=== PATIENT | female | born 1965 | race American Indian/Alaskan Native ===

== ENCOUNTER 2016-10-24 13:03 | Emergency (ER) | payer MEDICARE, MEDICAID ==
[2016-10-24 13:37] VITALS: BP 150/83
--- NOTE | 2016-10-24 13:56 | EDM.PDOC ---
ED HPI Behavioral Health - General Chief Complaint: Behavioral/Psych Stated Complaint: MENTAL ISSUES Time Seen by Provider: 10/24/16 13:41 Source of Information: Reports: Family (son) Exam Limitations: Reports: Altered mental status - History of Present Illness INITIAL COMMENTS - FREE TEXT/NARRATIVE: Son lives in [place] and has a friend who stays with the patient and her . The patient and her have been disagreeing/ arguing. By report she has been becoming less interactive; her son says she has been "going down hill for a week and becoming catatonic." Her son says that she has been diagnosed with " bipolar and schizophrenia." He brought her to the ED. By history also had a delusional disorder Onset of Symptoms: Reports: gradual Duration of Symptoms: Reports: Day(s):, Week(s): (for the past week), Getting worse Severity: severe Context, Behavioral Health: Reports: other () Associated Symptoms: Reports: depression, other (Becoming less interactive and the friend of her son says that she has not been eating. She had a small ammount of mashed potatoes) - SAD Persons Scale (SPS) SPS Sex: Female SPS Age: Between 18-65 Years of Age SPS Depression: Yes SPS Previous Suicide Attempts: No SPS Alcohol Abuse/Drug Abuse: No SPS Rational Thinking Loss: Yes SPS Social Support Deficit: Yes SPS Organized Suicide Plan: No SPS No Spouse/Significant Other: No (has been fighting with her ) SPS Sickness: Yes SPS Sad Person Scale Score: 4 - Related Data Allergies Allergy/AdvReac Type Severity Reaction Status Date / Time morphine Allergy Nausea Verified 12/03/15 00:41 pregabalin [From Lyrica] Allergy Swelling Verified 12/03/15 00:41 Home Medications: Home Meds Escitalopram Oxalate [Lexapro] 20 mg PO DAILY 12/03/15 [History] QUEtiapine [SEROquel] 1 tab PO BEDTIME 12/24/15 [History] ALPRAZolam 2 mg PO TID PRN 10/24/16 [History] Cyclobenzaprine [Flexeril] 10 mg PO TID PRN 10/24/16 [History] Gabapentin [Neurontin] 800 mg PO TID 10/24/16 [History] traMADol HCl [Tramadol HCl] 100 mg PO TID PRN 10/24/16 [History] Generalized Pain Score (Numeric/FACES): 0 Past Medical History HEENT History: Reports: Impaired vision Genitourinary History: Reports: Pyelonephritis, UTI, recurrent 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: Musculoskeletal History: Reports: Back pain, chronic, Fibromyalgia, Other (see below) Other Musculoskeletal History: back surg Neurological History: Reports: Seizure Other Neuro History: Recent seizure in [facility] Psychiatric History: Reports: Anxiety, Bipolar, Depression, Psych Hospitalization(s), Psychosis, Schizophrenia - Infectious Disease History Infectious Disease History: Reports: Chicken pox, Measles - Past Surgical History GI Surgical History: Reports: Appendectomy Social & Family History - Family History Family Medical History: Noncontributory Oncologic: Reports: Other (see below) Other Oncologic Family History: Father had throat ca. - Tobacco Use Smoking Status *Q: Current Some Day Smoker Years of Tobacco use: 20 Packs/Tins Daily: 0.2 Used Tobacco, but Quit: No Month Tobacco Last Used: 08/13 Second Hand Smoke Exposure: Yes - Caffeine Use Caffeine Use: Reports: Coffee - Alcohol Use Days Per Week of Alcohol Use: 0 - Recreational Drug Use Recreational Drug Use: Yes Drug Use in Last 12 Months: No Recreational Drug Type: Reports: Marijuana/Hashish Recreational Drug Use Frequency: Patient Refuses To Answer - Sexual History Sexual History: Reports: Sexually active - Living Situation & Occupation Living situation: Reports: with significant other Occupation: unemployed ED ROS GENERAL - Review of Systems Review Of Systems: See Below Constitutional: Reports: no symptoms HEENT: Reports: No symptoms Respiratory: Reports: No Symptoms Cardiovascular: Reports: No symptoms GI/Abdominal: Reports: No symptoms Musculoskeletal: Reports: no symptoms Skin: Reports: no symptoms Neurological: Reports: No Symptoms Psychiatric: Reports: Depression, Other (Behavior change limits history and there are no physical complaints. Her son reports she is becoming more withdrawn and has not been taking her medications. She only says a few nearly silent words.) ED EXAM, BEHAVIORAL HEALTH - Physical Exam Exam: See Below Exam Limited By: Altered mental status General Appearance: alert, WD/WN, no apparent distress Eye Exam: bilateral eye: EOMI, normal inspection Ears: normal external exam, normal canal, hearing grossly normal, normal TMs Nose: normal inspection Throat/Mouth: Normal inspection, Normal lips, Normal teeth, Normal gums, Normal oropharynx, Normal voice, No airway compromise Head: atraumatic, normocephalic Neck: normal inspection, supple, non-tender, full range of motion Respiratory/Chest: no respiratory distress, lungs clear, normal breath sounds Cardiovascular: normal peripheral pulses, regular rate, rhythm, no edema, no gallop, no JVD, no murmur, no rub Back Exam: normal inspection. No: muscle spasm, paraspinal tenderness Extremities: normal inspection, normal range of motion, non-tender, normal capillary refill, no pedal edema Psychiatric: alert, normal affect, normal mood, oriented, flat affect, non- communicative, poor eye contact, withdrawn Skin Exam: Warm COURSE, BEHAVIORAL HEALTH COMP - Course Vital Signs: Last Vital Signs Temp 96.6 F 10/24/16 13:08 Pulse 104 H 10/24/16 13:08 Resp 20 10/24/16 13:08 BP 150/83 H 10/24/16 13:08 Pulse Ox 99 10/24/16 13:08 Orders, Labs, Meds: Laboratory Tests 10/24/16 Range/Units 13:55 Urine Opiates Screen Negative (NEGATIVE) Ur Oxycodone Screen Negative (NEGATIVE) Urine Methadone Screen Negative (NEGATIVE) Ur Barbiturates Screen Negative (NEGATIVE) U Tricyclic Antidepress Negative (NEGATIVE) Ur Phencyclidine Scrn Negative (NEGATIVE) Ur Amphetamine Screen Negative (NEGATIVE) U Methamphetamines Scrn Negative (NEGATIVE) Urine MDMA Screen Negative (NEGATIVE) U Benzodiazepines Scrn Positive H (NEGATIVE) Urine Cocaine Screen Negative (NEGATIVE) U Marijuana (THC) Screen Positive H (NEGATIVE) Departure - Departure Time of Disposition: 15:51 Disposition: DC/Tfer to Psych Hosp/Unit 65 Condition: good Clinical Impression: Depressive disorder, Schizophrenia Forms: ED Department Discharge, Interfacility Transfer [facility] ED Communication - Discussed Case With (1) Discussed Case With (1): Mental Health Professional (Yeni Ame came to the ED to see and help evaluate the patient) - Discussed Case With (2) Discussed Case With (2): Mental Health Professional (discussed with [facility] who reports there were no bed available and that there was a waiting list.) - Conversation Summary Admitting Provider Agreed to Patient's Admission: Yes Patient Aware of Amendments fo Care Plan: Yes Summary Comment: Discussed with Rajani from [facility] in [place] who agree to accept her in transfer. The accepting physician is Dr Agustin Hong.
== END 2016-10-24 15:42 ==
LOC: DL.ED 13:03
DX: F32.9 Major depressive disorder, single episode, unspecified (principal); F20.9 Schizophrenia, unspecified; F41.9 Anxiety disorder, unspecified; Z88.5 Allergy status to narcotic agent; Z88.8 Allergy status to other drugs, medicaments and biological substances; Z79.899 Other long term (current) drug therapy; Z87.440 Personal history of urinary (tract) infections; Z90.49 Acquired absence of other specified parts of digestive tract
CPT/HCPCS: 80305; 99284; 99285

== ENCOUNTER 2017-01-02 13:33 | Emergency (ER) | payer MEDICARE, MEDICAID ==
[2017-01-02] MEDS ORDERED: Sodium Chloride 0.9% 1,000 ML IV ONE (14:30)
[2017-01-02] MEDS ORDERED: Sodium Chloride 0.9% 10 ML Syringe FLUSH PRN (14:30)
[2017-01-02] MEDS ORDERED: Ondansetron 4 MG/2 ML SDV IV ONE ×2 (14:30→17:17)
--- NOTE | 2017-01-02 14:30 | EDM.PDOC ---
<Eliel Lombardi - Last Filed: 01/02/17 18:57> ED HPI GENERAL MEDICAL PROBLEM - General Chief Complaint: Gastrointestinal Problem Stated Complaint: ABD PAIN Time Seen by Provider: 01/02/17 14:29 Source of Information: Reports: Patient, Old Records, RN, RN Notes Reviewed History Limitations: Reports: No Limitations - History of Present Illness INITIAL COMMENTS - FREE TEXT/NARRATIVE: Arrives from home by POV with c/o onset of burning with urination 2 days ago with onset of lower abdominal pain and cramping yesterday, and nausea and vomiting today. Admits to chills. She is unsure if she has had a fever or not. Denies diarrhea or constipation. Onset: Gradual Onset Date: 12/31/16 Duration: Constant, Getting Worse Location: Reports: Abdomen Quality: Reports: Ache, Burning Severity: Severe Improves with: Reports: None Worsens with: Reports: None Associated Symptoms: Reports: No Other Symptoms Vaginal Pain Score (Numeric/FACES): 8 - Related Data Allergies Allergy/AdvReac Type Severity Reaction Status Date / Time morphine Allergy Nausea Verified 12/03/15 00:41 pregabalin [From Lyrica] Allergy Swelling Verified 12/03/15 00:41 contrast dye Allergy Other Uncoded 01/02/17 18:44 Home Meds: Home Meds Escitalopram Oxalate [Lexapro] 20 mg PO DAILY 12/03/15 [History] QUEtiapine [SEROquel] 1 tab PO BEDTIME 12/24/15 [History] ALPRAZolam 2 mg PO TID PRN 10/24/16 [History] Cyclobenzaprine [Flexeril] 10 mg PO TID PRN 10/24/16 [History] Gabapentin [Neurontin] 800 mg PO TID 10/24/16 [History] traMADol HCl [Tramadol HCl] 100 mg PO TID PRN 10/24/16 [History] Past Medical History HEENT History: Reports: Impaired Vision Genitourinary History: Reports: Pyelonephritis, UTI, 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: Musculoskeletal History: Reports: Back Pain, Chronic, Fibromyalgia Other Musculoskeletal History: back surg Neurological History: Reports: Seizure Other Neuro History: Recent seizure in [facility] Psychiatric History: Reports: Anxiety, Bipolar, Depression, Psych Hospitalization(s), Psychosis, Schizophrenia - Infectious Disease History Infectious Disease History: Reports: Chicken Pox, Measles - Past Surgical History GI Surgical History: Reports: Appendectomy Female Surgical History: Reports: Section, Hysterectomy Musculoskeletal Surgical History: Reports: Other (See Below) Other Musculoskeletal Surgeries/Procedures:: back surgery Social & Family History - Family History Family Medical History: Noncontributory Oncologic: Reports: Other (See Below) Other Oncologic Family History: Father had throat ca. - Tobacco Use Smoking Status *Q: Current Some Day Smoker Years of Tobacco use: 4 Packs/Tins Daily: 0.1 Used Tobacco, but Quit: No Month Tobacco Last Used: 08/13 Second Hand Smoke Exposure: Yes - Caffeine Use Caffeine Use: Reports: Coffee, Soda, Tea - Alcohol Use Days Per Week of Alcohol Use: 0 - Recreational Drug Use Recreational Drug Use: No Drug Use in Last 12 Months: No Recreational Drug Type: Reports: Marijuana/Hashish Recreational Drug Use Frequency: Patient Refuses To Answer - Sexual History Sexual History: Reports: Sexually Active - Living Situation & Occupation Living situation: Reports: with Significant Other Occupation: Unemployed ED ROS GENERAL - Review of Systems Review Of Systems: ROS reveals no pertinent complaints other than HPI. ED EXAM, GI/ABD - Physical Exam Exam: See Below Exam Limited By: No Limitations General Appearance: Alert, WD/WN, No Apparent Distress Eyes: Bilateral: Normal Appearance Nose: Normal Inspection Throat/Mouth: Normal Inspection, Normal Lips, Normal Oropharynx, Normal Voice, No Airway Compromise Head: Atraumatic, Normocephalic Neck: Normal Inspection, Supple, Non-Tender, Full Range of Motion. No: Lymphadenopathy (L), Lymphadenopathy (R) Respiratory/Chest: No Respiratory Distress, Lungs Clear, Normal Breath Sounds, No Accessory Muscle Use, Chest Non-Tender Cardiovascular: Regular Rate, Rhythm, No Edema, Tachycardia GI/Abdominal: Normal Bowel Sounds, Soft, No Distention, No Abnormal Bruit, Tenderness (generalized lower abdominal tenderness). No: Guarding, Rebound, Rigidity (Female) Exam: Deferred Rectal (Female) Exam: Deferred Back Exam: Normal Inspection, Full Range of Motion. No: CVA Tenderness (L), CVA Tenderness (R) Extremities: Normal Inspection, Normal Range of Motion, Non-Tender, No Pedal Edema Neurological: Alert, Oriented, CN II-XII Intact, Normal Cognition, Normal Gait, No Motor/Sensory Deficits Psychiatric: Normal Affect, Normal Mood Skin Exam: Warm, Dry, Intact, Normal Color, No Rash Course - Vital Signs Last Recorded V/S: Last Vital Signs Temp 97.0 F 01/02/17 19:11 Pulse 64 01/02/17 19:11 Resp 18 01/02/17 19:11 BP 122/72 01/02/17 19:11 Pulse Ox 98 01/02/17 19:11 - Orders/Labs/Meds Orders: Active Orders 24 hr Category Date Time Status Peripheral IV Care [RC] . DIRECTED Care 01/02/17 14:31 Active Abdomen Pelvis wo Cont [CT] Stat Exams 01/02/17 18:20 Taken CHLAMYDIA TRACHOMATIS/GC AMPLF Routine Lab 01/02/17 16:50 Received Sodium Chloride 0.9% [Saline Flush] Med 01/02/17 14:30 Active 10 ml FLUSH ASDIRECTED PRN Peripheral IV Insertion Adult [OM.PC] Stat Oth 01/02/17 14:30 Ordered Medication Orders Sodium Chloride (Saline Flush) 10 ml FLUSH ASDIRECTED PRN PRN Reason: Keep Vein Open Last Admin: 01/02/17 14:38 Dose: 10 ml Labs: Laboratory Tests 01/02/17 01/02/17 01/02/17 Range/Units 14:20 14:20 14:53 WBC 14.7 H (5.0-10.0) 10^3/uL RBC 4.17 L (4.2-5.4) 10^6/uL Hgb 13.4 (12.0-16.0) g/dL Hct 39.4 (37.0-47.0) % MCV 94.5 (80-100) fL MCH 32.1 (27.0-34.0) pg MCHC 34.0 (33.0-35.0) g/dL Plt Count 282 (150-450) 10^3/uL Neut % (Auto) 87.8 H (42.2-75.2) % Lymph % (Auto) 9.5 L (20.5-50.1) % Hardin % (Auto) 2.2 (2-8) % Eos % (Auto) 0.3 L (1.0-3.0) % Baso % (Auto) 0.2 (0.0-1.0) % Sodium (135-145) mmol/L Potassium (3.6-5.0) mmol/L Chloride (101-111) mmol/L Carbon Dioxide (21.0-31.0) mmol/L Anion Gap BUN (7-18) mg/dL Creatinine (0.6-1.3) mg/dL Est Cr Clr Drug Dosing mL/min Estimated GFR (MDRD) BUN/Creatinine Ratio Glucose (74-105) mg/dL Calcium (8.4-10.2) mg/dl Total Bilirubin (0.2-1.0) mg/dL AST (10-42) IU/L ALT (10-60) IU/L Alkaline Phosphatase (42-121) IU/L Total Protein (6.7-8.2) g/dl Albumin (3.2-5.5) g/dl Globulin Albumin/Globulin Ratio Amylase (28-100) U/L Lipase (22-51) U/L Urine Color Yellow (YELLOW) Urine Appearance Slightly cloudy (CLEAR) Urine pH 6.0 (5.0-9.0) Ur Specific [place] >= 1.030 (1.005-1.030) Urine Protein 30 H (NEGATIVE) Urine Glucose (UA) Negative (NEGATIVE) Urine Ketones 80 H (NEGATIVE) Urine Occult Blood Trace-intact H (NEGATIVE) Urine Nitrite Negative (NEGATIVE) Urine Bilirubin Small H (NEGATIVE) Urine Urobilinogen 1.0 (0.2-1.0) mg/dL Ur Leukocyte Esterase Negative (NEGATIVE) Urine RBC 0-5 /HPF Urine WBC 5-10 H (0-5/HPF) /HPF Ur Epithelial Cells Many H /HPF Urine Bacteria Many H (0-FEW/HPF) /HPF Urine Mucus Moderate H /LPF Urine Opiates Screen Positive H (NEGATIVE) Ur Oxycodone Screen Negative (NEGATIVE) Urine Methadone Screen Negative (NEGATIVE) Ur Barbiturates Screen Negative (NEGATIVE) U Tricyclic Antidepress Positive H (NEGATIVE) Ur Phencyclidine Scrn Negative (NEGATIVE) Ur Amphetamine Screen Negative (NEGATIVE) U Methamphetamines Scrn Negative (NEGATIVE) Urine MDMA Screen Negative (NEGATIVE) U Benzodiazepines Scrn Positive H (NEGATIVE) Urine Cocaine Screen Negative (NEGATIVE) U Marijuana (THC) Screen Positive H (NEGATIVE) 01/02/17 01/02/17 Range/Units 14:53 16:50 WBC (5.0-10.0) 10^3/uL RBC (4.2-5.4) 10^6/uL Hgb (12.0-16.0) g/dL Hct (37.0-47.0) % MCV (80-100) fL MCH (27.0-34.0) pg MCHC (33.0-35.0) g/dL Plt Count (150-450) 10^3/uL Neut % (Auto) (42.2-75.2) % Lymph % (Auto) (20.5-50.1) % Hardin % (Auto) (2-8) % Eos % (Auto) (1.0-3.0) % Baso % (Auto) (0.0-1.0) % Sodium 143 (135-145) mmol/L Potassium 3.7 (3.6-5.0) mmol/L Chloride 106 (101-111) mmol/L Carbon Dioxide 24.0 (21.0-31.0) mmol/L Anion Gap 16.7 BUN 7 (7-18) mg/dL Creatinine 0.8 (0.6-1.3) mg/dL Est Cr Clr Drug Dosing 63.48 mL/min Estimated GFR (MDRD) > 60 BUN/Creatinine Ratio 8.75 Glucose 113 H (74-105) mg/dL Calcium 9.3 (8.4-10.2) mg/dl Total Bilirubin 0.5 (0.2-1.0) mg/dL AST 22 (10-42) IU/L ALT 16 (10-60) IU/L Alkaline Phosphatase 85 (42-121) IU/L Total Protein 7.2 (6.7-8.2) g/dl Albumin 4.2 (3.2-5.5) g/dl Globulin 3.0 Albumin/Globulin Ratio 1.40 Amylase 65 (28-100) U/L Lipase 28 (22-51) U/L Urine Color Yellow (YELLOW) Urine Appearance Clear (CLEAR) Urine pH 8.5 (5.0-9.0) Ur Specific [place] 1.015 (1.005-1.030) Urine Protein Negative (NEGATIVE) Urine Glucose (UA) Negative (NEGATIVE) Urine Ketones 40 H (NEGATIVE) Urine Occult Blood Trace-intact H (NEGATIVE) Urine Nitrite Negative (NEGATIVE) Urine Bilirubin Negative (NEGATIVE) Urine Urobilinogen 1.0 (0.2-1.0) mg/dL Ur Leukocyte Esterase Negative (NEGATIVE) Urine RBC 0-5 /HPF Urine WBC 0-5 (0-5/HPF) /HPF Ur Epithelial Cells Few /HPF Urine Bacteria Few (0-FEW/HPF) /HPF Urine Mucus Few H /LPF Urine Opiates Screen (NEGATIVE) Ur Oxycodone Screen (NEGATIVE) Urine Methadone Screen (NEGATIVE) Ur Barbiturates Screen (NEGATIVE) U Tricyclic Antidepress (NEGATIVE) Ur Phencyclidine Scrn (NEGATIVE) Ur Amphetamine Screen (NEGATIVE) U Methamphetamines Scrn (NEGATIVE) Urine MDMA Screen (NEGATIVE) U Benzodiazepines Scrn (NEGATIVE) Urine Cocaine Screen (NEGATIVE) U Marijuana (THC) Screen (NEGATIVE) Meds: Medications Generic Name Dose Route Start Last Admin Trade Name Freq PRN Reason Stop Dose Admin Sodium Chloride 10 ml 01/02/17 14:30 01/02/17 14:38 Saline Flush FLUSH 10 ml ASDIRECTED PRN Administration Keep Vein Open Discontinued Medications Generic Name Dose Route Start Last Admin Trade Name Freq PRN Reason Stop Dose Admin Sodium Chloride 1,000 mls @ 999 mls/hr 01/02/17 14:30 01/02/17 14:38 Normal Saline IV 01/02/17 15:30 999 mls/hr .BOLUS ONE Administration Ceftriaxone Sodium 1 gm/ 50 mls @ 100 mls/hr 01/02/17 17:17 01/02/17 17:31 Sodium Chloride IV 01/02/17 17:46 100 mls/hr ONETIME ONE Administration Iopamidol 75 ml 01/02/17 18:20 Isovue-300 (61%) IVPUSH 01/02/17 18:21 ONETIME ONE Ketorolac Tromethamine 30 mg 01/02/17 14:44 01/02/17 14:57 Toradol IVPUSH 01/02/17 14:45 30 mg ONETIME ONE Administration Metronidazole 500 mg 01/02/17 17:17 01/02/17 17:32 Metronidazole PO 01/02/17 17:18 500 mg ONETIME ONE Administration Ondansetron HCl 4 mg 01/02/17 14:30 01/02/17 14:38 Zofran IV 01/02/17 14:31 4 mg ONETIME ONE Administration Ondansetron HCl 4 mg 01/02/17 17:17 01/02/17 17:26 Zofran IV 01/02/17 17:18 4 mg ONETIME ONE Administration Phenazopyridine HCl 200 mg 01/02/17 14:44 01/02/17 14:54 Urinary Pain Relief PO 01/02/17 14:45 190 mg ONETIME ONE Administration Departure - Departure Disposition: Home, Self-Care 01 Clinical Impression: Abdominal pain, Bacterial vaginosis - Discharge Information Instructions: Abdominal Pain, Adult, [id number], Bacterial Vaginosis, Easy-to -Read Forms: ED Department Discharge Additional Instructions: light bland diet Flagyl 500mg one twice daily for 7 days, No alcohol x 8 days Doxycycline 100mg one twice daily Follow up in clinic next week if symptoms not improving <Brooke Cordon - Last Filed: 01/02/17 20:04> Course - Radiology Interpretation Free Text/Narrative:: CT abdomen and pelvis unremarkable - Re-Assessments/Exams Free Text/Narrative Re-Assessment/Exam: 01/02/17 20:03 Nausea and pain improved. Able to eat few crackers and liquid. Departure - Departure Time of Disposition: 19:57 Condition: Fair
[2017-01-02] MEDS ORDERED: Phenazopyridine 95 MG Tab PO ONE (14:44)
[2017-01-02] MEDS ORDERED: Ketorolac 30 MG/ML SDV IVPUSH ONE (14:44)
[2017-01-02 15:35] LABS: CHLORIDE,CL 106 mmol/L (101-111); SODIUM,NA 143 mmol/L (135-145)
[2017-01-02] MEDS ORDERED: metroNIDAZOLE 250 MG Tab PO ONE (17:17)
[2017-01-02] MEDS ORDERED: cefTRIAXone 1 GM in Sodium Chloride 0.9% 50 ML IV ONE (17:17)
[2017-01-02] MEDS ORDERED: Iopamidol 612 MG/ML 75 ML Bottle IVPUSH ONE (18:20)
[2017-01-02 20:21] VITALS: BP 130/75
== END 2017-01-02 20:11 | disposition home or self-care (01) ==
LOC: DL.ED 13:33
DX: N76.0 Acute vaginitis (principal); F17.210 Nicotine dependence, cigarettes, uncomplicated; F41.9 Anxiety disorder, unspecified; F31.9 Bipolar disorder, unspecified; Z90.49 Acquired absence of other specified parts of digestive tract; Z90.710 Acquired absence of both cervix and uterus; Z98.890 Other specified postprocedural states; Z87.440 Personal history of urinary (tract) infections; Z79.899 Other long term (current) drug therapy; Z88.5 Allergy status to narcotic agent; Z88.8 Allergy status to other drugs, medicaments and biological substances; Z91.041 Radiographic dye allergy status
CPT/HCPCS: 36415; 74176; 80053; 80305; 81001; 82150; 83690; 85025; 87491; 87591; 96365; 96367; 96375; 96376; 99284; A9270; J0696; J1885; J2405; J7030; J7050

== ENCOUNTER 2017-05-25 15:48 | Emergency (ER) | payer MEDICARE, MEDICAID ==
[2017-05-25 17:48] VITALS: BP 107/44
--- NOTE | 2017-05-25 17:50 | EDM.PDOC ---
ED HPI GENERAL MEDICAL PROBLEM - General Chief Complaint: Genitourinary Problem Stated Complaint: UTI [phone] Time Seen by Provider: 05/25/17 17:30 Source of Information: Reports: Patient History Limitations: Reports: No Limitations - History of Present Illness INITIAL COMMENTS - FREE TEXT/NARRATIVE: This 51 yo female patient reports to the ED with a 2 day history of urinary frequency, burning and pain with urination. The patient reports she attempted to get an appointment today, but could not get into the clinic until tomorrow. The patient did not want her infection to get worse by tomorrow. Onset Date: 05/24/17 Duration: Constant, Getting Worse Location: Reports: Other Severity: Moderate Improves with: Reports: None Worsens with: Reports: None Associated Symptoms: Reports: No Other Symptoms Lower Pelvic Pain Score (Numeric/FACES): 7 - Related Data Allergies Allergy/AdvReac Type Severity Reaction Status Date / Time morphine Allergy Nausea Verified 05/25/17 17:25 pregabalin [From Lyrica] Allergy Swelling Verified 05/25/17 17:25 contrast dye Allergy Other Uncoded 05/25/17 17:25 Home Meds: Home Meds QUEtiapine [SEROquel] 100 mg PO BEDTIME 12/24/15 [History] ALPRAZolam 1 mg PO TID PRN 10/24/16 [History] Gabapentin [Neurontin] 800 mg PO TID 10/24/16 [History] traMADol HCl [Tramadol HCl] 100 mg PO TID PRN 10/24/16 [History] Cholecalciferol (Vitamin D3) [Vitamin D3] 2,000 unit PO DAILY 05/25/17 [History] Divalproex Sodium [Depakote] 500 mg PO BID 05/25/17 [History] Multivitamin [Multivitamins] 1 tab PO DAILY 05/25/17 [History] Propranolol HCl [Propranolol HCl] 20 mg PO BID 05/25/17 [History] Past Medical History HEENT History: Reports: Impaired Vision Genitourinary History: Reports: Pyelonephritis, UTI, Recurrent BI 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: Musculoskeletal History: Reports: Back Pain, Chronic, Fibromyalgia Other Musculoskeletal History: back surg Neurological History: Reports: Seizure Other Neuro History: Recent seizure in [facility] Psychiatric History: Reports: Anxiety, Bipolar, Depression, Psych Hospitalization(s), Psychosis, Schizophrenia - Infectious Disease History Infectious Disease History: Reports: Chicken Pox, Measles - Past Surgical History GI Surgical History: Reports: Appendectomy Female Surgical History: Reports: Section, Hysterectomy Musculoskeletal Surgical History: Reports: Other (See Below) Other Musculoskeletal Surgeries/Procedures:: back surgery Social & Family History - Family History Family Medical History: Noncontributory Oncologic: Reports: Other (See Below) Other Oncologic Family History: Father had throat ca. - Tobacco Use Smoking Status *Q: Former Smoker Years of Tobacco use: 4 Packs/Tins Daily: 0.1 Used Tobacco, but Quit: Yes Month Tobacco Last Used: 10 Second Hand Smoke Exposure: Yes - Caffeine Use Caffeine Use: Reports: Soda - Alcohol Use Days Per Week of Alcohol Use: 0 - Recreational Drug Use Recreational Drug Use: Yes Drug Use in Last 12 Months: Yes Recreational Drug Type: Reports: Marijuana/Hashish Recreational Drug Use Frequency: Patient Refuses To Answer - Sexual History Sexual History: Reports: Sexually Active - Living Situation & Occupation Living situation: Reports: with Significant Other Occupation: Unemployed ED ROS GENERAL - Review of Systems Review Of Systems: ROS reveals no pertinent complaints other than HPI. ED EXAM, RENAL/ - Physical Exam Exam: See Below Exam Limited By: No Limitations General Appearance: Alert, WD/WN, Mild Distress Eye Exam: Bilateral Eye: EOMI, Normal Inspection, PERRL Ears: Normal External Exam, Normal Canal, Hearing Grossly Normal, Normal TMs Nose: Normal Inspection, Normal Mucosa, No Blood Throat/Mouth: Normal Inspection, Normal Lips, Normal Teeth, Normal Gums, Normal Oropharynx, Normal Voice, No Airway Compromise Head: Atraumatic, Normocephalic Neck: Normal Inspection, Supple, Non-Tender, Full Range of Motion Respiratory/Chest: No Respiratory Distress, Lungs Clear, Normal Breath Sounds, No Accessory Muscle Use, Chest Non-Tender Cardiovascular: Normal Peripheral Pulses, Regular Rate, Rhythm, No Edema, No Gallop, No JVD, No Murmur, No Rub GI/Abdominal: Normal Bowel Sounds, Soft, Non-Tender, No Organomegaly, No Distention, No Abnormal Bruit, No Mass (Female) Exam: Deferred Rectal (Female) Exam: Deferred Back Exam: Normal Inspection, Full Range of Motion, NT Extremities: Normal Inspection, Normal Range of Motion, Non-Tender, Normal Capillary Refill, No Pedal Edema Neurological: Alert, Oriented, CN II-XII Intact, Normal Cognition, Normal Gait, Normal Reflexes, No Motor/Sensory Deficits Psychiatric: Normal Affect, Normal Mood Skin Exam: Warm, Dry, Intact, Normal Color, No Rash Lymphatic: No Adenopathy Course - Vital Signs Last Recorded V/S: Last Vital Signs Temp 36.6 C 05/25/17 17:48 Pulse 81 05/25/17 17:48 Resp 18 05/25/17 17:48 BP 107/44 L 05/25/17 17:48 Pulse Ox 97 05/25/17 17:48 - Orders/Labs/Meds Orders: Active Orders 24 hr Category Date Time Status CULTURE URINE [RM] Stat Lab 05/25/17 17:50 Ordered Labs: Laboratory Tests 05/25/17 Range/Units 15:55 Urine Color Yellow (YELLOW) Urine Appearance Slightly cloudy (CLEAR) Urine pH 7.0 (5.0-9.0) Ur Specific [place] 1.020 (1.005-1.030) Urine Protein Negative (NEGATIVE) Urine Glucose (UA) Negative (NEGATIVE) Urine Ketones Negative (NEGATIVE) Urine Occult Blood Trace-lysed H (NEGATIVE) Urine Nitrite Negative (NEGATIVE) Urine Bilirubin Negative (NEGATIVE) Urine Urobilinogen 0.2 (0.2-1.0) mg/dL Ur Leukocyte Esterase Small H (NEGATIVE) Urine RBC 0-5 /HPF Urine WBC 0-5 (0-5/HPF) /HPF Ur Epithelial Cells Rare /HPF Urine Bacteria Few (0-FEW/HPF) /HPF Departure - Departure Time of Disposition: 17:48 Disposition: Home, Self-Care 01 Condition: Fair Clinical Impression: UTI, Urinary tract infectious disease - Discharge Information Instructions: Urinary Tract Infection, Adult, [id number] Forms: ED Department Discharge Care Plan Goals: The patient was advised of the examination and lab results during the visit. The patient was given a script for Bactrim DS to take 1 by mouth 2 times per day for 5 days and Pyridium (200 mg) to take 1 by mouth 3 times per day for 2 days. If the patient has any additional symptoms or concerns, the patient should follow-up with her primary care facility or return to the emergency department. - My Orders Last 24 Hours: My Active Orders 05/25/17 17:50 CULTURE URINE [RM] Stat - Assessment/Plan Last 24 Hours: My Active Orders 05/25/17 17:50 CULTURE URINE [RM] Stat
== END 2017-05-25 17:51 | disposition home or self-care (01) ==
LOC: DL.ED 15:48
DX: N39.0 Urinary tract infection, site not specified (principal); F31.9 Bipolar disorder, unspecified; Z87.891 Personal history of nicotine dependence; Z88.5 Allergy status to narcotic agent; Z88.8 Allergy status to other drugs, medicaments and biological substances; Z91.041 Radiographic dye allergy status
CPT/HCPCS: 81001; 87086; 87088; 87186; 99283

== ENCOUNTER 2017-10-01 11:13 | Emergency (ER) | payer MEDICARE, MEDICAID ==
[2017-10-01] MEDS ORDERED: Ondansetron 4 MG/2 ML SDV IV ONE (13:26)
[2017-10-01] MEDS ORDERED: Sodium Chloride 0.9% 1,000 ML IV ONE (13:26)
[2017-10-01] MEDS ORDERED: HYDROmorphone 0.5 MG/0.5 ML Syringe IVPUSH ONE (13:27)
[2017-10-01] MEDS ORDERED: Phenazopyridine 95 MG Tab PO ONE (13:27)
[2017-10-01] MEDS ORDERED: Sodium Chloride 0.9% 10 ML Syringe FLUSH PRN (13:27)
[2017-10-01] MEDS ORDERED: cefTRIAXone 1,000 MG in Sodium Chloride 0.9% 50 ML IV ONE (13:28)
[2017-10-01 14:13] LABS: CHLORIDE,CL 102 mmol/L (101-111); SODIUM,NA 139 mmol/L (135-145)
[2017-10-01 15:01] VITALS: BP 107/66
--- NOTE | 2017-10-03 15:20 | EDM.PDOC ---
Scribed by Felicia Gutierrez 10/03/17 1520 for Eliel Lombardi MD ED HPI GENERAL MEDICAL PROBLEM - General Chief Complaint: Genitourinary Problem Stated Complaint: [id number] THROWING UP/BLADDER INFECTION Time Seen by Provider: 10/01/17 12:30 Source of Information: Reports: Patient, Old Records, RN, RN Notes Reviewed History Limitations: Reports: No Limitations - History of Present Illness INITIAL COMMENTS - FREE TEXT/NARRATIVE: C/O onset of burning with urination yesterday. Today Sx's worsened and pt developed chills and N/V. She reports subjective fevers, but didn't measure her temperature. Onset: Gradual Onset Date: 09/30/17 Duration: Constant, Getting Worse Quality: Reports: Ache, Burning Severity: Severe Improves with: Reports: None Worsens with: Reports: Other (urination) Associated Symptoms: Reports: No Other Symptoms Bilateral Lower Back Pain Score (Numeric/FACES): 8 - Related Data Allergies Allergy/AdvReac Type Severity Reaction Status Date / Time morphine Allergy Nausea Verified 05/25/17 17:25 pregabalin [From Lyrica] Allergy Swelling Verified 05/25/17 17:25 contrast dye Allergy Other Uncoded 05/25/17 17:25 Home Meds: Home Meds QUEtiapine [SEROquel] 100 mg PO BEDTIME 12/24/15 [History] ALPRAZolam 1 mg PO TID PRN 10/24/16 [History] Gabapentin [Neurontin] 800 mg PO TID 10/24/16 [History] traMADol HCl [Tramadol HCl] 100 mg PO TID PRN 10/24/16 [History] Cholecalciferol (Vitamin D3) [Vitamin D3] 2,000 unit PO DAILY 05/25/17 [History] Divalproex Sodium [Depakote] 500 mg PO BID 05/25/17 [History] Multivitamin [Multivitamins] 1 tab PO DAILY 05/25/17 [History] Propranolol HCl 20 mg PO BID 05/25/17 [History] Past Medical History HEENT History: Reports: Impaired Vision Genitourinary History: Reports: Pyelonephritis, UTI, Recurrent 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: Musculoskeletal History: Reports: Back Pain, Chronic, Fibromyalgia Other Musculoskeletal History: back surg Neurological History: Reports: Seizure Other Neuro History: Recent seizure in [facility] Psychiatric History: Reports: Anxiety, Bipolar, Depression, Psych Hospitalization(s), Psychosis, Schizophrenia - Infectious Disease History Infectious Disease History: Reports: Chicken Pox, Measles - Past Surgical History GI Surgical History: Reports: Appendectomy Female Surgical History: Reports: Section, Hysterectomy Musculoskeletal Surgical History: Reports: Other (See Below) Other Musculoskeletal Surgeries/Procedures:: back surgery Social & Family History - Family History Family Medical History: Noncontributory Oncologic: Reports: Other (See Below) Other Oncologic Family History: Father had throat ca. - Tobacco Use Smoking Status *Q: Former Smoker Years of Tobacco use: 4 Packs/Tins Daily: 0.1 Used Tobacco, but Quit: Yes Month/Year Tobacco Last Used: 10 Second Hand Smoke Exposure: Yes - Caffeine Use Caffeine Use: Reports: Soda - Alcohol Use Days Per Week of Alcohol Use: 0 - Recreational Drug Use Recreational Drug Use: Yes Drug Use in Last 12 Months: Yes Recreational Drug Type: Reports: Marijuana/Hashish Recreational Drug Use Frequency: Patient Refuses To Answer - Sexual History Sexual History: Reports: Sexually Active - Living Situation & Occupation Living situation: Reports: with Significant Other Occupation: Unemployed ED ROS GENERAL - Review of Systems Review Of Systems: ROS reveals no pertinent complaints other than HPI. ED EXAM, RENAL/ - Physical Exam Exam: See Below Exam Limited By: No Limitations General Appearance: Alert, WD/WN, No Apparent Distress Throat/Mouth: Normal Inspection Head: Atraumatic, Normocephalic Neck: Normal Inspection Respiratory/Chest: No Respiratory Distress, Lungs Clear, Normal Breath Sounds, No Accessory Muscle Use, Chest Non-Tender Cardiovascular: Regular Rate, Rhythm, Tachycardia GI/Abdominal: Normal Bowel Sounds, Soft, No Distention, Tender (suprapubic). No : Guarding, Rigid, Rebound (Female) Exam: Deferred Rectal (Female) Exam: Deferred Back Exam: Normal Inspection, Full Range of Motion. No: CVA Tenderness (L), CVA Tenderness (R) Extremities: Normal Inspection Neurological: Alert, Oriented, CN II-XII Intact, Normal Cognition, Normal Gait, No Motor/Sensory Deficits Psychiatric: Normal Affect, Normal Mood Skin Exam: Warm, Dry, Intact, Normal Color, No Rash Course - Vital Signs Last Recorded V/S: Last Vital Signs Temp 37.1 C 10/01/17 14:50 Pulse 116 H 10/01/17 14:50 Resp 16 10/01/17 14:50 BP 107/66 10/01/17 14:50 Pulse Ox 99 10/01/17 14:50 - Orders/Labs/Meds Labs: Laboratory Tests 10/01/17 10/01/17 10/01/17 Range/Units 12:25 13:45 13:45 WBC 10.4 H (5.0-10.0) 10^3/uL RBC 4.49 (4.2-5.4) 10^6/uL Hgb 14.5 (12.0-16.0) g/dL Hct 42.5 (37.0-47.0) % MCV 94.7 (80-100) fL MCH 32.3 (27.0-34.0) pg MCHC 34.1 (33.0-35.0) g/dL Plt Count 194 D (150-450) 10^3/uL Neut % (Auto) 75.3 H (42.2-75.2) % Lymph % (Auto) 20.4 L (20.5-50.1) % Bates % (Auto) 3.2 (2-8) % Eos % (Auto) 0.8 L (1.0-3.0) % Baso % (Auto) 0.3 (0.0-1.0) % Sodium 139 (135-145) mmol/L Potassium 4.1 (3.6-5.0) mmol/L Chloride 102 (101-111) mmol/L Carbon Dioxide 28.0 (21.0-31.0) mmol/L Anion Gap 13.1 BUN 10 (7-18) mg/dL Creatinine 1.0 (0.6-1.3) mg/dL Est Cr Clr Drug Dosing TNP Estimated GFR (MDRD) 58 BUN/Creatinine Ratio 10.00 Glucose 110 H (74-105) mg/dL Calcium 9.4 (8.4-10.2) mg/dl Total Bilirubin 0.4 (0.2-1.0) mg/dL AST 37 (10-42) IU/L ALT 24 (10-60) IU/L Alkaline Phosphatase 59 (42-121) IU/L Total Protein 7.7 (6.7-8.2) g/dl Albumin 4.5 (3.2-5.5) g/dl Globulin 3.2 Albumin/Globulin Ratio 1.41 Urine Color Yellow (YELLOW) Urine Appearance Clear (CLEAR) Urine pH 8.5 (5.0-9.0) Ur Specific [place] 1.015 (1.005-1.030) Urine Protein Trace H (NEGATIVE) Urine Glucose (UA) Negative (NEGATIVE) Urine Ketones 15 H (NEGATIVE) Urine Occult Blood Trace-intact H (NEGATIVE) Urine Nitrite Negative (NEGATIVE) Urine Bilirubin Negative (NEGATIVE) Urine Urobilinogen 0.2 (0.2-1.0) mg/dL Ur Leukocyte Esterase Negative (NEGATIVE) Urine RBC 0-5 /HPF Urine WBC 0-5 (0-5/HPF) /HPF Ur Epithelial Cells Moderate H /HPF Urine Bacteria Few (0-FEW/HPF) /HPF Urine Mucus Not seen /LPF Meds: Medications Discontinued Medications Generic Name Dose Route Start Last Admin Trade Name Freq PRN Reason Stop Dose Admin Hydromorphone HCl 1 mg 10/01/17 13:27 10/01/17 14:19 Dilaudid IVPUSH 10/01/17 13:28 1 mg ONETIME ONE Administration Sodium Chloride 1,000 mls @ 999 mls/hr 10/01/17 13:26 10/01/17 14:19 Normal Saline IV 10/01/17 14:26 999 mls/hr .BOLUS ONE Administration Ceftriaxone Sodium 1,000 mg/ 50 mls @ 100 mls/hr 10/01/17 13:28 10/01/17 14: 19 Sodium Chloride IV 10/01/17 13:57 100 mls/hr ONETIME ONE Administration Ondansetron HCl 4 mg 10/01/17 13:26 10/01/17 14:20 Zofran IV 10/01/17 13:27 4 mg ONETIME ONE Administration Phenazopyridine HCl 190 mg 10/01/17 13:27 10/01/17 14:20 Urinary Pain Relief PO 10/01/17 13:28 190 mg ONETIME ONE Administration Sodium Chloride 10 ml 10/01/17 13:27 10/01/17 14:19 Saline Flush FLUSH 10 ml ASDIRECTED PRN Administration Keep Vein Open Departure - Departure Time of Disposition: 14:42 Disposition: Home, Self-Care 01 Condition: Fair Clinical Impression: Dysuria, Microscopic hematuria UTI (urinary tract infection) Qualifiers: Urinary tract infection type: site unspecified Hematuria presence: with hematuria Qualified Code(s): N39.0 - Urinary tract infection, site not specified ; R31.9 - Hematuria, unspecified - Discharge Information Instructions: Urinary Tract Infection, Adult, [id number] Forms: ED Department Discharge Additional Instructions: RX: Cipro 500mg. RX: Pyridium 200mg. RX: Zofran 4mg. RX: Diflucan 150mg. Drink plenty of water, Follow up in clinic next week for recheck of urine. I have read and agree with the documentation that has been completed regarding this visit. By signing this record, I attest that the documentation was completed in my physical presence and is an accurate record of the encounter.
== END 2017-10-01 15:08 | disposition home or self-care (01) ==
LOC: DL.ED 11:13
DX: N39.0 Urinary tract infection, site not specified (principal); Z88.5 Allergy status to narcotic agent; Z91.041 Radiographic dye allergy status; Z79.899 Other long term (current) drug therapy; Z87.891 Personal history of nicotine dependence
CPT/HCPCS: 36415; 80053; 81001; 85025; 96361; 96374; 96375; 99283; A9270; J0696; J1170; J2405; J7030; J7050

== ENCOUNTER 2019-04-27 19:32 | Emergency (ER) | payer MEDICARE, MEDICAID ==
[2019-04-27 20:04] VITALS: BP 160/87; PULSE 81
--- NOTE | 2019-04-27 20:18 | EDM.PDOC ---
ED HPI GENERAL MEDICAL PROBLEM - General Chief Complaint: Genitourinary Problem Stated Complaint: UTI Time Seen by Provider: 04/27/19 20:15 Source of Information: Reports: Patient, RN History Limitations: Reports: No Limitations - History of Present Illness INITIAL COMMENTS - FREE TEXT/NARRATIVE: Urinary frequency and burning x 3 days, Hx UTI's and similar sx. Was seen in [place] about 5 days ago, Given Bactrim for UTI, sx not improved and antibiotic makes her nauseated. Chills last norma, some lower back pain on right. Bilateral Lower Flank Pain Score (Numeric/FACES): 5 - Related Data Allergies Allergy/AdvReac Type Severity Reaction Status Date / Time morphine Allergy Nausea Verified 04/27/19 19:39 pregabalin [From Lyrica] Allergy Swelling Verified 04/27/19 19:39 contrast dye Allergy Other Uncoded 04/27/19 19:39 Home Meds: Home Meds QUEtiapine [SEROquel] 100 mg PO BEDTIME 12/24/15 [History] ALPRAZolam 1 mg PO TID PRN 10/24/16 [History] Gabapentin [Neurontin] 800 mg PO TID 10/24/16 [History] Cholecalciferol (Vitamin D3) [Vitamin D3] 2,000 unit PO DAILY 05/25/17 [History] Multivitamin [Multivitamins] 1 tab PO DAILY 05/25/17 [History] oxyCODONE HCl/Acetaminophen [Oxycodone-Acetaminophen 5-325] 1 tab PO QID PRN [History] Past Medical History HEENT History: Reports: Impaired Vision Genitourinary History: Reports: Pyelonephritis, UTI, Recurrent 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: Musculoskeletal History: Reports: Back Pain, Chronic, Fibromyalgia Other Musculoskeletal History: back surg Neurological History: Reports: Seizure Other Neuro History: Recent seizure in [facility] Psychiatric History: Reports: Anxiety, Bipolar, Depression, Psych Hospitalization(s), Psychosis, Schizophrenia - Infectious Disease History Infectious Disease History: Reports: Chicken Pox, Measles - Past Surgical History GI Surgical History: Reports: Appendectomy Female Surgical History: Reports: Section, Hysterectomy Musculoskeletal Surgical History: Reports: Other (See Below) Other Musculoskeletal Surgeries/Procedures:: back surgery Social & Family History - Family History Family Medical History: Noncontributory Oncologic: Reports: Other (See Below) Other Oncologic Family History: Father had throat ca. - Tobacco Use Smoking Status *Q: Current Every Day Smoker Years of Tobacco use: 26 Packs/Tins Daily: 0.5 Second Hand Smoke Exposure: Yes - Caffeine Use Caffeine Use: Reports: Coffee, Soda, Tea - Recreational Drug Use Recreational Drug Use: No - Sexual History Sexual History: Reports: Sexually Active - Living Situation & Occupation Living situation: Reports: with Significant Other Occupation: Unemployed ED ROS GENERAL - Review of Systems Review Of Systems: See Below Constitutional: Reports: Chills, Decreased Appetite HEENT: Reports: No Symptoms Respiratory: Reports: No Symptoms Cardiovascular: Reports: No Symptoms GI/Abdominal: Reports: Nausea. Denies: Vomiting : Reports: Dysuria, Flank Pain, Frequency, Urgency Musculoskeletal: Reports: No Symptoms Skin: Reports: No Symptoms Neurological: Reports: No Symptoms ED EXAM, RENAL/ - Physical Exam Exam: See Below Exam Limited By: No Limitations General Appearance: Alert, Anxious Eye Exam: Bilateral Eye: EOMI Ears: Normal External Exam Nose: Normal Inspection Throat/Mouth: Normal Inspection, Normal Voice Head: Atraumatic, Normocephalic Neck: Normal Inspection Respiratory/Chest: No Respiratory Distress, Lungs Clear, Normal Breath Sounds Cardiovascular: Normal Peripheral Pulses, Regular Rate, Rhythm GI/Abdominal: Normal Bowel Sounds, Soft, Other (Drinking water without emesis) Back Exam: CVA Tenderness (R). No: CVA Tenderness (L) Extremities: Normal Inspection Neurological: Alert, Oriented Psychiatric: Anxious Skin Exam: Warm, Dry, Intact, Normal Color Course - Vital Signs Last Recorded V/S: Last Vital Signs Temp 97.0 F 04/27/19 20:02 Pulse 81 04/27/19 20:02 Resp 18 04/27/19 20:02 BP 160/87 H 04/27/19 20:02 Pulse Ox 99 04/27/19 20:02 - Orders/Labs/Meds Orders: Active Orders 24 hr Category Date Time Status CULTURE URINE [RM] Stat Lab 04/27/19 19:44 Received Labs: Laboratory Tests 04/27/19 Range/Units 19:44 Urine Color Yellow (YELLOW) Urine Appearance Cloudy (CLEAR) Urine pH 5.5 (5.0-9.0) Ur Specific [place] 1.025 (1.005-1.030) Urine Protein Negative (NEGATIVE) Urine Glucose (UA) Negative (NEGATIVE) Urine Ketones Negative (NEGATIVE) Urine Occult Blood Moderate H (NEGATIVE) Urine Nitrite Positive H (NEGATIVE) Urine Bilirubin Negative (NEGATIVE) Urine Urobilinogen 0.2 (0.2-1.0) mg/dL Ur Leukocyte Esterase Negative (NEGATIVE) Urine RBC 10-20 H /HPF Urine WBC 10-20 H (0-5/HPF) /HPF Ur Epithelial Cells Moderate H (NOT SEEN) /HPF Amorphous Sediment Moderate H (NOT SEEN) /HPF Urine Bacteria Many H (0-FEW/HPF) /HPF Urine Mucus Few H (NOT SEEN) /LPF Meds: Medications Discontinued Medications Generic Name Dose Route Start Last Admin Trade Name Freq PRN Reason Stop Dose Admin Ciprofloxacin 500 mg 04/27/19 20:33 04/27/19 20:41 Ciprofloxacin Hcl PO 04/27/19 20:34 500 mg ONETIME ONE Administration Ondansetron HCl 4 mg 04/27/19 20:33 04/27/19 20:40 Zofran Odt PO 04/27/19 20:34 4 mg ONETIME ONE Administration Phenazopyridine HCl 190 mg 04/27/19 20:33 04/27/19 20:40 Urinary Pain Relief PO 04/27/19 20:34 190 mg ONETIME ONE Administration Departure - Departure Time of Disposition: 20:38 Disposition: Home, Self-Care 01 Condition: Good Clinical Impression: UTI, Urinary tract infectious disease, Pyelonephritis - Discharge Information *PRESCRIPTION DRUG MONITORING PROGRAM REVIEWED*: Not Applicable *COPY OF PRESCRIPTION DRUG MONITORING REPORT IN PATIENT SUGAR: Not Applicable Instructions: Urinary Tract Infection, Adult Referrals: PCP,None [Primary Care Provider] - Forms: ED Department Discharge Additional Instructions: Cipro 500mg one twice daily for one week Increase fluids Increase frequency of urinating Pyridium 200 mg every 8 hours as needed for burning with urination zofran ODT 4mg one every 6 hours as needed for nausea Follow up if fevers , flank pain, vomiting or symptoms not improving - My Orders Last 24 Hours: My Active Orders 04/27/19 19:44 CULTURE URINE [RM] Stat - Assessment/Plan Last 24 Hours: My Active Orders 04/27/19 19:44 CULTURE URINE [RM] Stat
[2019-04-27] MEDS ORDERED: Ciprofloxacin 500 MG Tab PO ONE (20:33)
[2019-04-27] MEDS ORDERED: Phenazopyridine 95 MG Tab PO ONE (20:33)
[2019-04-27] MEDS ORDERED: Ondansetron 4 MG Tab.DIS PO ONE (20:33)
== END 2019-04-27 20:46 | disposition home or self-care (01) ==
LOC: DL.ED 19:32
DX: N12 Tubulo-interstitial nephritis, not specified as acute or chronic (principal); F41.9 Anxiety disorder, unspecified; F32.9 Major depressive disorder, single episode, unspecified; F17.210 Nicotine dependence, cigarettes, uncomplicated; Z88.5 Allergy status to narcotic agent; Z88.8 Allergy status to other drugs, medicaments and biological substances; Z91.041 Radiographic dye allergy status; Z79.899 Other long term (current) drug therapy
CPT/HCPCS: 81001; 87086; 99283; A9270; 87186

== ENCOUNTER 2019-11-01 15:46 | Emergency (ER) | payer MEDICARE, MEDICAID ==
--- NOTE | 2019-11-01 16:09 | EDM.PDOC ---
ED HPI GENERAL MEDICAL PROBLEM - General Chief Complaint: Lower Extremity Injury/Pain Stated Complaint: RESTLESS LEG SYNDROM Time Seen by Provider: 11/01/19 16:00 Source of Information: Reports: Patient, Old Records, RN, RN Notes Reviewed History Limitations: Reports: No Limitations - History of Present Illness INITIAL COMMENTS - FREE TEXT/NARRATIVE: Pt presents to ER with c/o uncontrolled restless leg syndrome and uncontrolled chronic pain. Pt came back to [place] from [place] and her mailed prescriptions did not come to [place] on time, but she has tracked them down and they will be here in a few days. Denies injury, fall, or any other complaints. Pt states she also has an appointment 11/07/19. She is here for medication refills to get her through until then. Duration: Day(s): (3-4) Location: Reports: Lower Extremity, Left, Lower Extremity, Right Quality: Reports: Ache, Burning, Same as Previous Episode, Sharp Severity: Severe Improves with: Reports: None Worsens with: Reports: None Leg Pain Score (Numeric/FACES): 10 - Related Data Allergies Allergy/AdvReac Type Severity Reaction Status Date / Time morphine Allergy Nausea Verified 04/27/19 19:39 pregabalin [From Lyrica] Allergy Swelling Verified 04/27/19 19:39 contrast dye Allergy Other Uncoded 04/27/19 19:39 Home Meds: Home Meds QUEtiapine [SEROquel] 100 mg PO BEDTIME 12/24/15 [History] Cholecalciferol (Vitamin D3) [Vitamin D3] 2,000 unit PO DAILY 05/25/17 [History] Multivitamin [Multivitamins] 1 tab PO DAILY 05/25/17 [History] Past Medical History HEENT History: Reports: Impaired Vision Genitourinary History: Reports: Pyelonephritis, UTI, Recurrent 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: Musculoskeletal History: Reports: Back Pain, Chronic, Fibromyalgia, Other (See Below) (RLS) Other Musculoskeletal History: back surg Neurological History: Reports: Seizure Other Neuro History: Recent seizure in [facility] Psychiatric History: Reports: Anxiety, Bipolar, Depression, Psych Hospitalization(s), Psychosis, Schizophrenia - Infectious Disease History Infectious Disease History: Reports: Chicken Pox, Measles - Past Surgical History GI Surgical History: Reports: Appendectomy Female Surgical History: Reports: Section, Hysterectomy Musculoskeletal Surgical History: Reports: Other (See Below) Other Musculoskeletal Surgeries/Procedures:: back surgery Social & Family History - Family History Family Medical History: Noncontributory Oncologic: Reports: Other (See Below) Other Oncologic Family History: Father had throat ca. - Caffeine Use Caffeine Use: Reports: Coffee, Soda, Tea - Sexual History Sexual History: Reports: Sexually Active - Living Situation & Occupation Living situation: Reports: with Significant Other Occupation: Unemployed Review of Systems - Review of Systems Review Of Systems: Comprehensive ROS is negative, except as noted in HPI. ED EXAM, GENERAL - Physical Exam Exam: See Below Exam Limited By: No Limitations General Appearance: Alert, WD/WN, No Apparent Distress, Anxious Throat/Mouth: Normal Inspection Head: Atraumatic, Normocephalic Neck: Normal Inspection Respiratory/Chest: No Respiratory Distress, Lungs Clear, Normal Breath Sounds, No Accessory Muscle Use, Chest Non-Tender Cardiovascular: Normal Peripheral Pulses, Regular Rate, Rhythm, No Edema, Tachycardia Back Exam: Decreased Range of Motion. No: Vertebral Tenderness Extremities: Normal Capillary Refill, Leg Pain (B/L thigh and anterior lower leg pain) Neurological: Alert, Oriented, CN II-XII Intact, Normal Cognition, Normal Gait, No Motor/Sensory Deficits Psychiatric: Anxious Skin Exam: Warm, Dry, Intact, Normal Color, No Rash Course - Vital Signs Last Recorded V/S: Last Vital Signs Temp 98.4 F 11/01/19 15:59 Pulse 142 H 11/01/19 15:59 Resp 16 11/01/19 15:59 BP 118/92 H 11/01/19 15:59 Pulse Ox 100 11/01/19 15:59 Departure - Departure Time of Disposition: 16:06 Disposition: Home, Self-Care 01 Condition: Good Clinical Impression: Restless leg syndrome, uncontrolled, Chronic pain disorder - Discharge Information *PRESCRIPTION DRUG MONITORING PROGRAM REVIEWED*: No *COPY OF PRESCRIPTION DRUG MONITORING REPORT IN PATIENT SUGAR: No Instructions: Chronic Pain, Adult, Restless Legs Syndrome Forms: ED Department Discharge Additional Instructions: Rx: Ropinirole 0.5mg Rx: Percocet 5mg/325mg Follow up in clinic for medication management as planned. Sepsis Event Note - Evaluation Sepsis Screening Result: No Definite Risk - Focused Exam Vital Signs: Vital Signs Temp Pulse Resp BP Pulse Ox 11/01/19 15:59 98.4 F 142 H 16 118/92 H 100 Date Exam was Performed: 11/01/19 Time Exam was Performed: 16:09
== END 2019-11-01 16:17 | disposition home or self-care (01) ==
LOC: DL.ED 15:46
CPT/HCPCS: 99283

== ENCOUNTER 2019-12-30 09:26 | Emergency (ER) | payer MEDICARE, MEDICAID ==
--- NOTE | 2019-12-30 09:37 | EDM.PDOC ---
ED HPI GENERAL MEDICAL PROBLEM - General Chief Complaint: Genitourinary Problem Stated Complaint: BLADDER INFECTION? Time Seen by Provider: 12/30/19 09:33 Source of Information: Reports: Patient, Old Records, RN, RN Notes Reviewed History Limitations: Reports: No Limitations - History of Present Illness INITIAL COMMENTS - FREE TEXT/NARRATIVE: Pt presents to ER from home with c/o "I have a urinary tract infection". Pt reports onset of burning with urination 2 days ago and worse with foul odor and cloudy urine at 2000HRS last evening. Denies fevers. Admits to mild chills. Pt a lso had a mix up in her mail in pharmacy for her pain contract. She notified her pain doctor and received permission to obtain medication to cover her through Thursday. Duration: Constant Location: Reports: Other (urinary) Quality: Reports: Burning Severity: Moderate Improves with: Reports: None Worsens with: Reports: None Associated Symptoms: Reports: No Other Symptoms generalized Pain Score (Numeric/FACES): 9 - Related Data Allergies Allergy/AdvReac Type Severity Reaction Status Date / Time morphine Allergy Nausea Verified 12/30/19 09:46 pregabalin [From Lyrica] Allergy Swelling Verified 12/30/19 09:46 contrast dye Allergy Other Uncoded 12/30/19 09:46 Home Meds: Home Meds QUEtiapine [SEROquel] 100 mg PO BEDTIME 12/24/15 [History] Cholecalciferol (Vitamin D3) [Vitamin D3] 2,000 unit PO DAILY 05/25/17 [History] Multivitamin [Multivitamins] 1 tab PO DAILY 05/25/17 [History] LORazepam [Lorazepam] 3 mg PO DAILY 12/30/19 [History] oxyCODONE 5 mg PO Q4H PRN 12/30/19 [History] Past Medical History HEENT History: Reports: Impaired Vision Genitourinary History: Reports: Pyelonephritis, UTI, Recurrent 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: Musculoskeletal History: Reports: Back Pain, Chronic, Fibromyalgia, Other (See Below) (RLS) Other Musculoskeletal History: back surg Neurological History: Reports: Seizure Other Neuro History: Recent seizure in [facility] Psychiatric History: Reports: Anxiety, Bipolar, Depression, Psych Hospitalization(s), Psychosis, Schizophrenia - Infectious Disease History Infectious Disease History: Reports: Chicken Pox, Measles - Past Surgical History GI Surgical History: Reports: Appendectomy Female Surgical History: Reports: Section, Hysterectomy Musculoskeletal Surgical History: Reports: Other (See Below) Other Musculoskeletal Surgeries/Procedures:: back surgery Social & Family History - Family History Family Medical History: Noncontributory Oncologic: Reports: Other (See Below) Other Oncologic Family History: Father had throat ca. - Caffeine Use Caffeine Use: Reports: Coffee, Soda, Tea - Sexual History Sexual History: Reports: Sexually Active - Living Situation & Occupation Living situation: Reports: with Significant Other Occupation: Unemployed ED ROS GENERAL - Review of Systems Review Of Systems: Comprehensive ROS is negative, except as noted in HPI. ED EXAM, RENAL/ - Physical Exam Exam: See Below Exam Limited By: No Limitations General Appearance: Alert, WD/WN, No Apparent Distress Head: Atraumatic, Normocephalic Respiratory/Chest: No Respiratory Distress Cardiovascular: Regular Rate, Rhythm GI/Abdominal: Normal Bowel Sounds, Soft, Non-Tender Back Exam: No: CVA Tenderness (L), CVA Tenderness (R) Extremities: Normal Inspection Neurological: Alert, Oriented, No Motor/Sensory Deficits Psychiatric: Normal Affect, Normal Mood Skin Exam: Warm, Dry, Intact, Normal Color, No Rash Course - Vital Signs Last Recorded V/S: Last Vital Signs Temp 98.0 F 12/30/19 09:39 Pulse 138 H 12/30/19 09:39 Resp 16 12/30/19 09:39 BP 131/88 12/30/19 09:39 Pulse Ox 100 12/30/19 09:39 - Orders/Labs/Meds Orders: Active Orders 24 hr Category Date Time Status CULTURE URINE [RM] Stat Lab 12/30/19 09:29 Received Labs: Laboratory Tests 12/30/19 Range/Units 09:29 Urine Color Yellow (YELLOW) Urine Appearance Slightly cloudy (CLEAR) Urine pH 8.5 (5.0-9.0) Ur Specific [place] 1.020 (1.005-1.030) Urine Protein Negative (NEGATIVE) Urine Glucose (UA) Negative (NEGATIVE) Urine Ketones Negative (NEGATIVE) Urine Occult Blood Trace-intact H (NEGATIVE) Urine Nitrite Positive H (NEGATIVE) Urine Bilirubin Negative (NEGATIVE) Urine Urobilinogen 0.2 (0.2-1.0) mg/dL Ur Leukocyte Esterase Negative (NEGATIVE) Urine RBC 0-5 /HPF Urine WBC 0-5 (0-5/HPF) /HPF Ur Epithelial Cells Rare (NOT SEEN) /HPF Urine Bacteria Many H (0-FEW/HPF) /HPF Urine Mucus Not seen (NOT SEEN) /LPF Departure - Departure Time of Disposition: 10:10 Disposition: Home, Self-Care 01 Condition: Good Clinical Impression: Has run out of medications - Discharge Information *PRESCRIPTION DRUG MONITORING PROGRAM REVIEWED*: No *COPY OF PRESCRIPTION DRUG MONITORING REPORT IN PATIENT SUGAR: No Instructions: Urinary Tract Infection, Adult, [id number] Forms: ED Department Discharge Additional Instructions: Drink plenty of water. Rx: Cipro 500mg Rx: Pyridium 200mg Rx: Oxycodone 5mg Follow up in clinic in 7 to 10 days for urine recheck. Sepsis Event Note (ED) - Focused Exam Vital Signs: Vital Signs Temp Pulse Resp BP Pulse Ox 12/30/19 09:39 98.0 F 138 H 16 131/88 100 - My Orders Last 24 Hours: My Active Orders 12/30/19 09:29 CULTURE URINE [RM] Stat - Assessment/Plan Last 24 Hours: My Active Orders 12/30/19 09:29 CULTURE URINE [RM] Stat
[2019-12-30 09:40] VITALS: BP 131/88; PULSE 138
== END 2019-12-30 10:19 | disposition home or self-care (01) ==
LOC: DL.ED 09:26
DX: Z76.0 Encounter for issue of repeat prescription (principal); F41.9 Anxiety disorder, unspecified; F32.9 Major depressive disorder, single episode, unspecified; Z79.899 Other long term (current) drug therapy; Z88.5 Allergy status to narcotic agent; Z88.8 Allergy status to other drugs, medicaments and biological substances; Z91.041 Radiographic dye allergy status
CPT/HCPCS: 81001; 87086; 87088; 87186; 99283

== ENCOUNTER 2022-05-10 07:58 | Emergency (ER) | payer MEDICARE | END 2022-05-10 08:07 | disposition left against medical advice (07) | LOC: DL.ED 07:58 | DX: Z53.21 Procedure and treatment not carried out due to patient leaving prior to being seen by health care provider (principal) ==

== ENCOUNTER 2022-05-29 10:25 | Emergency (ER) | payer MEDICARE ==
[2022-05-29 10:40] VITALS: BP 140/93; PULSE 82
[2022-05-29 11:13] LABS: ANION GAP 11.7 mEq/L (7-13); CHLORIDE,CL 105 mmol/L (98-107); SODIUM,NA 142 mmol/L (136-145)
[2022-05-29 11:15] LABS: ACETAMINOPHEN 0 ug/mL (10-30 (Therapeutic)); ESTIMATED GFR 73 mL/min (>=60)
[2022-05-29 11:21] LABS: CORONAVIRUS COVID-19 NAA NEGATIVE (NEGATIVE); RESPIRATORY SYNCYTIAL VIR NAA NEGATIVE (NEGATIVE)
[2022-05-29 11:26] LABS: METHAMPHETAMINES,URINE POSITIVE (NEGATIVE)
[2022-05-29 11:27] LABS: AMPHETAMINES,URINE POSITIVE (NEGATIVE); BARBITURATES,URINE NEGATIVE (NEGATIVE); BENZODIAZEPINE,URINE NEGATIVE (NEGATIVE); MDMA (ECSTASY), URINE NEGATIVE (NEGATIVE); METHADONE,URINE NEGATIVE (NEGATIVE); OPIATES,URINE NEGATIVE (NEGATIVE); OXYCODONE,URINE NEGATIVE (NEGATIVE); PHENCYCLIDINE,URINE NEGATIVE (NEGATIVE); TCA,URINE NEGATIVE (NEGATIVE)
== END 2022-05-29 11:10 | disposition other institution (70) ==
LOC: DL.ED 10:25
DX: F20.2 Catatonic schizophrenia (principal); F19.10 Other psychoactive substance abuse, uncomplicated; R45.851 Suicidal ideations; Z72.0 Tobacco use; Z88.5 Allergy status to narcotic agent; Z88.8 Allergy status to other drugs, medicaments and biological substances; Z91.041 Radiographic dye allergy status; Z20.822 Contact with and (suspected) exposure to COVID-19
CPT/HCPCS: 0241U; 36415; 80053; 80143; 80179; 80305; 80307; 81001; 83735; 84443; 85025; 99284

== ENCOUNTER 2023-04-07 08:51 | Emergency (ER) | payer MEDICARE ==
[2023-04-07] MEDS ORDERED: Sodium Chloride 0.9% 10 ML Syringe FLUSH PRN (08:57)
[2023-04-07] MEDS ORDERED: Ondansetron 4 MG/2 ML SDV IV ONE (08:58)
[2023-04-07] MEDS ORDERED: Sodium Chloride 0.9% 1,000 ML IV ONE (08:58)
[2023-04-07 09:18] VITALS: BP 123/86; PULSE 85
[2023-04-07 09:18] LABS: BASOPHILS PERCENT AUTO 0.2 % (0.0-1.0); HEMATOCRIT 42.4 % (37.0-47.0); LYMPHOCYTES PERCENT AUTO 13.6 % (20.5-50.1); MEAN CORPUSCULAR HEMOGLOBIN 31.6 pg (27.0-34.0); MEAN CORPUSCULAR HGB CONC 35.4 g/dL (33.0-35.0); MEAN CORPUSCULAR VOLUME 89.5 fL (80-100); MONOCYTES PERCENT AUTO 5.4 % (2-8); NEUTROPHILS PERCENT AUTO 80.8 % (42.2-75.2); PLATELET COUNT,PLT 310 10^3/uL (150-450); RED BLOOD CELL COUNT 4.74 10^6/uL (4.2-5.4); WHITE BLOOD CELL COUNT,WBC 12.9 10^3/uL (5.0-10.0)
[2023-04-07 09:37] LABS: A/G RATIO 1.2; ALBUMIN 4.4 g/dL (3.4-5.0); ANION GAP 17.4 mEq/L (7-13); BILIRUBIN TOTAL 0.8 mg/dL (0.2-1.0); BUN/CREATININE RATIO 8.9 (No establ ref range); CALCIUM 10.3 mg/dL (8.5-10.1); CREATININE 1.01 mg/dL (0.55-1.02); EST CRCL DRUG DOSING (CG) 46.93 mL/min; POTASSIUM,K 3.4 mmol/L (3.5-5.1); PROTEIN TOTAL,TP 8.1 g/dL (6.4-8.2)
[2023-04-07] MEDS ORDERED: Promethazine 25 MG/ML SDV IM ONE (09:45)
[2023-04-07] MEDS ORDERED: Famotidine 20 MG/2 ML SDV IVPUSH ONE (09:45)
[2023-04-07 10:01] LABS: CORONAVIRUS COVID-19 NAA NEGATIVE (NEGATIVE); INFLUENZA A NAA NEGATIVE (NEGATIVE); INFLUENZA B NAA NEGATIVE (NEGATIVE); RESPIRATORY SYNCYTIAL VIR NAA NEGATIVE (NEGATIVE)
[2023-04-07] MEDS ORDERED: traMADol 50 MG Tab PO ONE (10:24)
[2023-04-07 10:50] LABS: APPEARANCE,URINE CLEAR (CLEAR); BILIRUBIN,URINE NEGATIVE (NEGATIVE); COLOR,URINE YELLOW (YELLOW); GLUCOSE,URINE NEGATIVE (NEGATIVE); KETONES,URINE 15 (NEGATIVE); LEUKOCYTE ESTERASE,URINE NEGATIVE (NEGATIVE); NITRITE,URINE NEGATIVE (NEGATIVE); OCCULT BLOOD,URINE NEGATIVE (NEGATIVE); PH,URINE >= 9.0 (5.0-9.0); PROTEIN,URINE 100 (NEGATIVE); UROBILINOGEN,URINE 0.2 mg/dL (0.2-1.0)
[2023-04-07 10:59] LABS: AMPHETAMINES,URINE NEGATIVE (NEGATIVE); BARBITURATES,URINE NEGATIVE (NEGATIVE); BENZODIAZEPINE,URINE NEGATIVE (NEGATIVE); MDMA (ECSTASY), URINE NEGATIVE (NEGATIVE); METHADONE,URINE NEGATIVE (NEGATIVE); METHAMPHETAMINES,URINE NEGATIVE (NEGATIVE); OPIATES,URINE NEGATIVE (NEGATIVE); OXYCODONE,URINE NEGATIVE (NEGATIVE); PHENCYCLIDINE,URINE NEGATIVE (NEGATIVE); TCA,URINE NEGATIVE (NEGATIVE)
[2023-04-07 11:05] LABS: BACTERIA,URINE FEW /HPF (0-FEW/HPF); EPITHELIAL CELLS,URINE MANY /HPF (NOT SEEN); MUCUS,URINE FEW /LPF (NOT SEEN); RBC,URINE 0-5 /HPF (0-5); WBC,URINE 0-5 /HPF (0-5/HPF)
[2023-04-07 11:06] LABS: AMORPHOUS SEDIMENT,URINE FEW /HPF (NOT SEEN)
== END 2023-04-07 10:47 | disposition home or self-care (01) ==
LOC: DL.ED 08:51
DX: Z76.0 Encounter for issue of repeat prescription (principal); R11.2 Nausea with vomiting, unspecified; Z88.5 Allergy status to narcotic agent; Z91.041 Radiographic dye allergy status; Z88.8 Allergy status to other drugs, medicaments and biological substances; Z79.899 Other long term (current) drug therapy; Z98.890 Other specified postprocedural states; Z20.822 Contact with and (suspected) exposure to COVID-19
CPT/HCPCS: 0241U; 36415; 80053; 80305-QW; 81001; 83690; 85025; 96361; 96372; 96374; 96375; 99284; 99284-25; A9270-GY; J2405; J2550; J3490; J7030

== ENCOUNTER 2023-04-15 02:50 | Emergency (ER) | payer MEDICARE ==
[2023-04-15 03:07] VITALS: BP 142/76; PULSE 108
[2023-04-15 03:38] LABS: BASOPHILS PERCENT AUTO 0.4 % (0.0-1.0); EOSINOPHILS PERCENT AUTO 1.2 % (1.0-3.0); HEMATOCRIT 41.5 % (37.0-47.0); LYMPHOCYTES PERCENT AUTO 30.9 % (20.5-50.1); MEAN CORPUSCULAR HEMOGLOBIN 31.8 pg (27.0-34.0); MEAN CORPUSCULAR HGB CONC 33.7 g/dL (33.0-35.0); MEAN CORPUSCULAR VOLUME 94.3 fL (80-100); MONOCYTES PERCENT AUTO 9.1 % (2-8); NEUTROPHILS PERCENT AUTO 58.4 % (42.2-75.2); PLATELET COUNT,PLT 251 10^3/uL (150-450); WHITE BLOOD CELL COUNT,WBC 9.3 10^3/uL (5.0-10.0)
[2023-04-15 04:04] LABS: A/G RATIO 1.2; ALANINE AMINOTRANSFERASE,ALT 18 U/L (14-59); ALBUMIN 3.9 g/dL (3.4-5.0); ALKALINE PHOSPHATASE 93 U/L (46-116); ANION GAP 12.4 mEq/L (7-13); ASPARTATE AMNIOTRANSFERASE,AST 11 U/L (15-37); BILIRUBIN TOTAL 0.4 mg/dL (0.2-1.0); BLOOD UREA NITROGEN,BUN 5 mg/dL (7-18); BUN/CREATININE RATIO 5.7 (No establ ref range); CALCIUM 9.5 mg/dL (8.5-10.1); CARBON DIOXIDE,CO2 29 mmol/L (21-32); CHLORIDE,CL 108 mmol/L (98-107); CREATININE 0.88 mg/dL (0.55-1.02); GLUCOSE RANDOM 102 mg/dL (70-99); MAGNESIUM 2.2 mg/dL (1.8-2.4); POTASSIUM,K 3.4 mmol/L (3.5-5.1); PROTEIN TOTAL,TP 7.2 g/dL (6.4-8.2); SODIUM,NA 146 mmol/L (136-145)
[2023-04-15 04:05] LABS: ACETAMINOPHEN 0 ug/mL (10-30 (Therapeutic)); ESTIMATED GFR 77 mL/min (>=60); ETHANOL BLOOD MEDICAL < 3 mg/dL (0)
== END 2023-04-15 05:07 | disposition home or self-care (01) ==
LOC: DL.ED 02:50
DX: Z76.0 Encounter for issue of repeat prescription (principal); F32.A Depression, unspecified; F22 Delusional disorders; F20.9 Schizophrenia, unspecified; E87.0 Hyperosmolality and hypernatremia; E87.6 Hypokalemia; F17.210 Nicotine dependence, cigarettes, uncomplicated; Z88.5 Allergy status to narcotic agent; Z88.8 Allergy status to other drugs, medicaments and biological substances; Z91.041 Radiographic dye allergy status; Z98.890 Other specified postprocedural states
CPT/HCPCS: 36415; 80053; 80143; 80179; 80307; 83735; 85025; 99284

== ENCOUNTER 2023-04-15 08:42 | Emergency (ER) | payer MEDICARE, OTHER ==
[2023-04-15] MEDS: LORazepam 2 MG/ML SDV IM ONE (08:52)
[2023-04-15] MEDS: Haloperidol Lactate 5 MG/ML SDV ONE (08:53)
[2023-04-15] MEDS: diphenhydrAMINE 50 MG/ML SDV IM ONE (08:53)
[2023-04-15] MEDS: diphenhydrAMINE 50 MG/ML SDV ONE (08:53)
[2023-04-15] MEDS: Haloperidol Lactate 5 MG/ML SDV IM ONE (08:53)
[2023-04-15] MEDS: LORazepam 2 MG/ML SDV ONE (08:54)
[2023-04-15 09:10] VITALS: BP 153/89; PULSE 149
[2023-04-15 09:27] LABS: AMPHETAMINES,URINE NEGATIVE (NEGATIVE); BARBITURATES,URINE NEGATIVE (NEGATIVE); BENZODIAZEPINE,URINE NEGATIVE (NEGATIVE); MDMA (ECSTASY), URINE NEGATIVE (NEGATIVE); METHADONE,URINE NEGATIVE (NEGATIVE); METHAMPHETAMINES,URINE NEGATIVE (NEGATIVE); OPIATES,URINE NEGATIVE (NEGATIVE); OXYCODONE,URINE NEGATIVE (NEGATIVE); PHENCYCLIDINE,URINE NEGATIVE (NEGATIVE); TCA,URINE NEGATIVE (NEGATIVE)
[2023-04-15] MEDS ORDERED: Potassium Chloride 10 MEQ Tab.ER PO ONE (09:33)
== END 2023-04-15 09:38 ==
LOC: DL.ED 08:42
DX: R44.3 Hallucinations, unspecified (principal); F19.10 Other psychoactive substance abuse, uncomplicated; Z88.5 Allergy status to narcotic agent; Z88.8 Allergy status to other drugs, medicaments and biological substances; Z91.041 Radiographic dye allergy status; Z79.899 Other long term (current) drug therapy; Z98.890 Other specified postprocedural states
CPT/HCPCS: 80305; 96372; 99284; J1200; J1630; J2060

== ENCOUNTER 2023-06-14 13:13 | Emergency (ER) | payer MEDICARE ==
[2023-06-14] MEDS ORDERED: LORazepam 1 MG Tab PO ONE (13:14)
[2023-06-14 13:31] VITALS: BP 144/83; PULSE 107
[2023-06-14] MEDS ORDERED: LORazepam 1 MG Tab ONE (13:41)
[2023-06-14] MEDS: Take Home: traMADol 50 MG, 4 Tab Pack PO ONE (13:45)
== END 2023-06-14 13:49 | disposition home or self-care (01) ==
LOC: DL.ED 13:13
DX: G89.29 Other chronic pain (principal); M54.50 Low back pain, unspecified; Z90.710 Acquired absence of both cervix and uterus; Z79.899 Other long term (current) drug therapy; Z88.5 Allergy status to narcotic agent; Z88.8 Allergy status to other drugs, medicaments and biological substances; Z91.041 Radiographic dye allergy status
CPT/HCPCS: 99283; A9270-GY

== ENCOUNTER 2024-10-24 17:11 | Emergency (ER) | payer MEDICARE, MEDICAID ==
[2024-10-24 17:40] VITALS: BP 169/83; PULSE 94
== END 2024-10-24 18:00 | disposition home or self-care (01) ==
LOC: DL.ED 17:11
DX: F41.9 Anxiety disorder, unspecified (principal); F31.60 Bipolar disorder, current episode mixed, unspecified; Z90.49 Acquired absence of other specified parts of digestive tract; Z79.899 Other long term (current) drug therapy; Z91.048 Other nonmedicinal substance allergy status; Z88.5 Allergy status to narcotic agent; Z88.8 Allergy status to other drugs, medicaments and biological substances
CPT/HCPCS: 99283; 99284

== ENCOUNTER 2025-01-30 16:55 | Emergency (ER) | payer MEDICARE, MEDICAID ==
[2025-01-30 17:51] VITALS: BP 110/54; PULSE 89
== END 2025-01-30 17:45 | disposition home or self-care (01) ==
LOC: DL.ED 16:55
DX: Z76.0 Encounter for issue of repeat prescription (principal); Z88.5 Allergy status to narcotic agent; Z88.8 Allergy status to other drugs, medicaments and biological substances; Z91.041 Radiographic dye allergy status; Z79.899 Other long term (current) drug therapy
CPT/HCPCS: 99281

== ENCOUNTER 2025-02-15 10:49 | Emergency (ER) | payer MEDICARE, MEDICAID ==
[2025-02-15 11:35] LABS: BASOPHILS PERCENT AUTO 0.3 % (0.0-1.0); EOSINOPHILS PERCENT AUTO 1.0 % (1.0-3.0); LYMPHOCYTES PERCENT AUTO 29.5 % (20.5-50.1); MONOCYTES PERCENT AUTO 5.7 % (2-8); NEUTROPHILS PERCENT AUTO 63.5 % (42.2-75.2); PLATELET COUNT,PLT 246 10^3/uL (150-450); RED BLOOD CELL COUNT 4.05 10^6/uL (4.2-5.4); WHITE BLOOD CELL COUNT,WBC 6.3 10^3/uL (5.0-10.0)
[2025-02-15 11:55] LABS: A/G RATIO 1.3; ALANINE AMINOTRANSFERASE,ALT 21.0 U/L (14-59); ASPARTATE AMNIOTRANSFERASE,AST 22.0 U/L (15-37); BILIRUBIN TOTAL 0.5 mg/dL (0.2-1.0); BLOOD UREA NITROGEN,BUN 6.0 mg/dL (7-18); CARBON DIOXIDE,CO2 29.0 mmol/L (21-32); CHLORIDE,CL 106.0 mmol/L (98-107); CREATININE 0.84 mg/dL (0.55-1.02); EST CRCL DRUG DOSING (CG) 55.09 mL/min; GLUCOSE RANDOM 109.0 mg/dL (70-99); POTASSIUM,K 3.6 mmol/L (3.5-5.1); PROTEIN TOTAL,TP 7.4 g/dL (6.4-8.2); SODIUM,NA 144.0 mmol/L (136-145)
[2025-02-15 11:56] LABS: ESTIMATED GFR 81.0 mL/min (>=60)
[2025-02-15 12:04] LABS: APPEARANCE,URINE CLOUDY (CLEAR); GLUCOSE,URINE NEGATIVE (NEGATIVE); OCCULT BLOOD,URINE SMALL (NEGATIVE)
[2025-02-15 12:09] LABS: AMPHETAMINES,URINE POSITIVE (NEGATIVE); BARBITURATES,URINE NEGATIVE (NEGATIVE); MDMA (ECSTASY), URINE NEGATIVE (NEGATIVE); METHAMPHETAMINES,URINE POSITIVE (NEGATIVE); OPIATES,URINE NEGATIVE (NEGATIVE); OXYCODONE,URINE NEGATIVE (NEGATIVE); PHENCYCLIDINE,URINE NEGATIVE (NEGATIVE); TCA,URINE NEGATIVE (NEGATIVE)
[2025-02-15 12:14] LABS: EPITHELIAL CELLS,URINE MANY /HPF (NOT SEEN)
[2025-02-15] MEDS: Nitrofurantoin Monohydrate/Macrocrystalline 100 MG Cap PO ONE (14:03)
[2025-02-15 14:47] LABS: T4 FREE 1.18 ng/dL (0.76-1.46); TSH ULTRASENSITIVE 0.81 uIU/mL (0.36-3.74)
[2025-02-15 14:48] LABS: ETHANOL BLOOD MEDICAL < 3 mg/dL (0)
[2025-02-15 16:51] VITALS: BP 143/65; PULSE 70
== END 2025-02-15 17:15 ==
LOC: DL.ED 10:49
DX: F31.60 Bipolar disorder, current episode mixed, unspecified (principal); F20.9 Schizophrenia, unspecified; N39.0 Urinary tract infection, site not specified; F19.10 Other psychoactive substance abuse, uncomplicated; Z88.5 Allergy status to narcotic agent; Z88.8 Allergy status to other drugs, medicaments and biological substances
CPT/HCPCS: 36415; 80053; 80143; 80179; 80305; 80307; 81001; 83735; 84439; 84443; 85025; 87086; 87088; 87186; 87426; 96372; 99285; A9270; J3486

== ENCOUNTER 2025-03-10 19:04 | Emergency (ER) | payer MEDICARE, MEDICAID ==
[2025-03-10 19:12] VITALS: BP 167/88; PULSE 95
== END 2025-03-10 19:28 | disposition left against medical advice (07) ==
LOC: DL.ED 19:04
DX: G89.4 Chronic pain syndrome (principal); I10 Essential (primary) hypertension; Z88.5 Allergy status to narcotic agent; Z91.041 Radiographic dye allergy status; Z79.899 Other long term (current) drug therapy
CPT/HCPCS: 99283

== ENCOUNTER 2025-05-15 01:10 | Emergency (ER) | payer MEDICARE, MEDICAID ==
[2025-05-15 01:55] LABS: BASOPHILS PERCENT AUTO 0.4 % (0.0-1.0); EOSINOPHILS PERCENT AUTO 1.4 % (1.0-3.0); LYMPHOCYTES PERCENT AUTO 22.4 % (20.5-50.1); MONOCYTES PERCENT AUTO 8.3 % (2-8); NEUTROPHILS PERCENT AUTO 67.5 % (42.2-75.2); PLATELET COUNT,PLT 275 10^3/uL (150-450); RED BLOOD CELL COUNT 3.97 10^6/uL (4.2-5.4); WHITE BLOOD CELL COUNT,WBC 9.6 10^3/uL (5.0-10.0)
[2025-05-15 02:04] LABS: A/G RATIO 1.2; ALANINE AMINOTRANSFERASE,ALT 17 U/L (14-59); ASPARTATE AMNIOTRANSFERASE,AST 17 U/L (15-37); BILIRUBIN TOTAL 0.4 mg/dL (0.2-1.0); BLOOD UREA NITROGEN,BUN 5 mg/dL (7-18); CARBON DIOXIDE,CO2 28 mmol/L (21-32); CHLORIDE,CL 104 mmol/L (98-107); CREATININE 0.73 mg/dL (0.55-1.02); ESTIMATED GFR 95 mL/min (>=60); ETHANOL BLOOD MEDICAL < 3 mg/dL (0); GLUCOSE RANDOM 110 mg/dL (70-99); POTASSIUM,K 3.2 mmol/L (3.5-5.1); PROTEIN TOTAL,TP 7.3 g/dL (6.4-8.2); SODIUM,NA 141 mmol/L (136-145)
[2025-05-15 02:05] LABS: LACTIC ACID 0.7 mmol/L (0.4-2.0)
[2025-05-15 02:10] LABS: TSH ULTRASENSITIVE 2.52 uIU/mL (0.36-3.74)
[2025-05-15 03:13] LABS: APPEARANCE,URINE CLEAR (CLEAR); GLUCOSE,URINE NEGATIVE (NEGATIVE); OCCULT BLOOD,URINE TRACE-LYSED (NEGATIVE)
[2025-05-15 03:17] LABS: AMPHETAMINES,URINE NEGATIVE (NEGATIVE); BARBITURATES,URINE NEGATIVE (NEGATIVE); MDMA (ECSTASY), URINE NEGATIVE (NEGATIVE); METHAMPHETAMINES,URINE NEGATIVE (NEGATIVE); OPIATES,URINE NEGATIVE (NEGATIVE); OXYCODONE,URINE NEGATIVE (NEGATIVE); PHENCYCLIDINE,URINE NEGATIVE (NEGATIVE); TCA,URINE NEGATIVE (NEGATIVE)
[2025-05-15 03:20] LABS: EPITHELIAL CELLS,URINE OCCASIONAL /HPF (NOT SEEN)
[2025-05-15] MEDS: Potassium Chloride 10 MEQ Tab.ER PO ONE (09:47)
[2025-05-15 09:54] VITALS: BP 152/62; PULSE 80
== END 2025-05-15 09:51 | disposition home or self-care (01) ==
LOC: DL.ED 01:10
DX: T40.421A Poisoning by tramadol, accidental (unintentional), initial encounter (principal); F20.2 Catatonic schizophrenia; F31.60 Bipolar disorder, current episode mixed, unspecified; N39.0 Urinary tract infection, site not specified; E87.6 Hypokalemia; I10 Essential (primary) hypertension; Z88.5 Allergy status to narcotic agent; Z91.041 Radiographic dye allergy status; Z79.899 Other long term (current) drug therapy; Z88.8 Allergy status to other drugs, medicaments and biological substances
CPT/HCPCS: 36415; 80053; 80143; 80179; 80305; 80307; 81001; 83605; 83690; 83735; 84443; 84484; 85025; 93005; 93010; 96374; 96375; 99284; 99285; A9270; J0696; J1630